=== PATIENT | male | born 1985 | race African-American/Black ===

== ENCOUNTER 2019-07-23 02:38 | Emergency (ER) | payer SELFPAY ==
[~2019-07-23] VITALS: Ht 185.4 cm; Wt 109.0 kg
--- NOTE | 2019-07-23 02:49 | PHYS DOC ---
Adult General Chief Complaint Chief Complaint: shortness of breath HPI HPI Patient is a 34 year old male who presents with complaint of shortness of breath and wheezing that started about an hour ago. Patient had gone to see a movie and went outside walking when the shortness of breath came on. Patient has a history of asthma and states that he usually takes a couple of breathing treatments daily. He denies any chest pain. He also denies any fever. Shortness breath is worsened with exertion.[] Review of Systems Review of Systems Constitutional: Denies fever or chills [] Respiratory: Complains of wheezing and shortness of breath [] Cardiovascular: No additional information not addressed in HPI [] Integument: Denies rash or skin lesions [] Neurologic: Denies headache, focal weakness or sensory changes [] Current Medications Current Medications Current Medications Medications (Trade) Dose Ordered Sig/Aura Start Time Stop Time Status Last Admin Dose Admin Albuterol/ Ipratropium (Duoneb) 3 ml 1X ONCE 07/23/19 03:15 07/23/19 03:16 DC 07/23/19 03:10 3 ML Allergies Allergies Allergies Coded Allergies Type Severity Reaction Last Updated Verified No Known Drug Allergies 07/23/19 No Physical Exam Physical Exam Constitutional: Well developed, well nourished, no acute distress, non-toxic appearance. [] Neck: Normal range of motion, no tenderness, supple, no stridor. [] Cardiovascular: Regular rate and rhythm[] Lungs & Thorax: Inspiratory and expiratory wheezes are noted bilaterally to auscultation [] Skin: Warm, dry, no erythema, no rash. [] Extremities: No tenderness, no cyanosis, no clubbing, ROM intact, no edema. [] Neurologic: Alert and oriented X 3, no focal deficits noted. [] Current Patient Data Vital Signs Vital Signs Date Time Temp Pulse Resp B/P (MAP) Pulse Ox O2 Delivery O2 Flow Rate FiO2 07/23/19 03:14 98 Room Air 07/23/19 02:38 97.6 80 15 148/95 (112) 97.6 EKG EKG [] Radiology/Procedures Radiology/Procedures [] Course & Med Decision Making Course & Med Decision Making Pertinent Labs and Imaging studies reviewed. (See chart for details) [] Dragon Disclaimer Dragon Disclaimer This electronic medical record was generated, in whole or in part, using a voice recognition dictation system. Departure Departure Impression: Primary Impression: Asthma exacerbation Disposition: HOME, SELF-CARE Condition: STABLE Patient Instructions: Asthma, Adult Problem Qualifiers Primary Impression: Asthma exacerbation Asthma severity: mild Asthma persistence: unspecified Qualified Codes: J45.901 - Unspecified asthma with (acute) exacerbation ASHLYN BRANNON Jr. DO Jul 23, 2019 02:49
[2019-07-23] MEDS ORDERED: IPRATRPIUM/ALBUTEROL 0.5/2.5MG 3 ML NEBU. NEB ONE (03:15)
[2019-07-23 04:12] VITALS: BP 129/85
== END 2019-07-23 04:12 | disposition home or self-care (01) ==
LOC: ER 02:38
DX: J45.901 Unspecified asthma with (acute) exacerbation (principal); R06.02 Shortness of breath
CPT/HCPCS: 94640; 99283; J7620